=== PATIENT | female | born 1960 | race Hispanic/Latino ===

== ENCOUNTER → 2020-11-02 | Outpatient (CLI) | payer BC ==
[~2020-11-02] MED LIST: ESOMEPRAZOLE PO; LACT1CAP78 PO; LEVO50TA6 PO; METOPROLOL PO; MULT80TA PO; NAPR220T57 PO; NIFEDIPINE PO; VALS160T29 PO
== END | disposition home or self-care (01) ==
LOC: RAH 16:21
PROVIDERS: ATTEND Family Medicine
DX: Z12.31 Encounter for screening mammogram for malignant neoplasm of breast (principal)
CPT/HCPCS: 77067